=== PATIENT | male | born 1975 | race Caucasian/White ===

== ENCOUNTER 2021-10-17 07:29 | Emergency (ER) | payer MEDICAID ==
[~2021-10-17] VITALS: Ht 182.9 cm; Wt 90.7 kg
--- NOTE | 2021-10-17 07:56 | NUR ---
ERMD in Room # 5A for MSE.
--- NOTE | 2021-10-17 08:04 | NUR ---
XR aware of new order.
--- NOTE | 2021-10-17 09:30 | NUR ---
Pt has been cleared for DC by MADELIN. Patient discharged to home in stable conditionw ith instructions to f/up with Ortho. MD and RN spent time explaining to patient his possible route to get help. Written and verbal after care instructions given. Patient verbalizes understanding of instructions. Stressed follow up or return to ER for worsening s/s. Pt ambulated in steady gait with walking boot on R leg, and crutches.
[2021-10-17 09:32] VITALS: BP 140/85
== END 2021-10-17 09:33 | disposition home or self-care (01) ==
LOC: ER 07:29
DX: S92.011D Displaced fracture of body of right calcaneus, subsequent encounter for fracture with routine healing (principal); W11.XXXD Fall on and from ladder, subsequent encounter
CPT/HCPCS: 73630; A4663